=== PATIENT | female | born 1940 | race Caucasian/White ===

== ENCOUNTER → 2017-05-19 | Outpatient (CLI) | payer MEDICARE ==
--- NOTE | 2017-05-19 15:45 | PCVCIMAG ---
EXAM: BILATERAL CAROTID DUPLEX INDICATION: Carotid Occlusive Disease. FINDINGS: Doppler Measurements (centimeters per second): RIGHT: Peak CCA-48, Peak ECA-46, Diastolic ICA-48, Peak ICA-166, ICA/CCA Ratio-3.5. LEFT: Peak CCA-63, Peak ECA-54, Diastolic ICA-30, Peak ICA-90, ICA/CCA Ratio-1.4. RIGHT CAROTID: The carotid bulb has mild plaque. The proximal internal carotid artery shows 60% stenosis. The common carotid artery shows no significant stenosis. The external carotid artery shows no significant stenosis. LEFT CAROTID: The carotid bulb has minimal plaque. The proximal internal carotid artery shows no significant stenosis. The common carotid artery shows no significant stenosis. The external carotid artery shows no significant stenosis. Antegrade flow in both vertebral arteries. IMPRESSION: 60% stenosis of the right internal carotid artery with mild plaque. No significant stenosis of the left internal carotid artery with minimal plaque. Minimal change since May 2016 study. LOC:[id number]
== END | disposition home or self-care (01) ==
LOC: PCVCCLINIC 14:41
PROVIDERS: ATTEND Nuclear Medicine Nuclear Cardiology
DX: I65.21 Occlusion and stenosis of right carotid artery (principal); I77.9 Disorder of arteries and arterioles, unspecified; G89.4 Chronic pain syndrome; E78.00 Pure hypercholesterolemia, unspecified; M54.16 Radiculopathy, lumbar region; Z79.82 Long term (current) use of aspirin; Z79.899 Other long term (current) drug therapy
CPT/HCPCS: 93880; G0463

== ENCOUNTER → 2018-05-18 | Outpatient (CLI) | payer MEDICARE ==
--- NOTE | 2018-05-18 11:26 | PCVCIMAG ---
APPROVED REPORT Indications Stenosis Doppler Spectral Velocity Analysis PSV / EDVPSV / EDV ECA (R) 89 / 5 cm/sECA (L) 72 / 4 cm/s dICA (R) 152 / 46 cm/sdICA (L) 93 / 20 cm/s Cyndie (R) 82 / 26 cm/smICA (L) 82 / 29 cm/s pICA (R) 42 / 8 cm/spICA (L) 62 / 16 cm/s Bulb (R) 42 / 10 cm/sBulb (L) 53 / 12 cm/s dCCA (R) 78 / 14 cm/sdCCA (L) 69 / 13 cm/s mCCA (R) 73 / 16 cm/smCCA (L) 83 / 16 cm/s Vert (R) 58 / 16 cm/sVert (L) 53 / 10 cm/s ICA/CCA 1.95 ICA/CCA 1.12 Basic Measurements Blood Pressure: Pulses: Right Left RightLeft Brachial(Sitting) 120/72hqOz910/62mmHgTemporal Real Time B-Mode Imaging Vert. (R)AntegradeVert. (L)Antegrade Findings The right external carotid artery shows no significant stenosis. The right common carotid artery shows no significant stenosis. The right external carotid artery shows no significant stenosis. The right proximal internal carotid artery shows 50-60% stenosis. The left carotid bulb has minimal plaque. The left proximal internal carotid artery shows no significant stenosis. The left common carotid artery shows no significant stenosis. The left external carotid artery shows no significant stenosis. Conclusion 1. Right internal carotid artery stenosis (50-60%) 2. Left internal carotid artery plaquing without significant stenosis 3. Antegrade vertebral flow Similar to 2015
== END | disposition home or self-care (01) ==
LOC: PCVCIMAG 09:36
PROVIDERS: ATTEND Internal Medicine
DX: I65.23 Occlusion and stenosis of bilateral carotid arteries (principal); I77.9 Disorder of arteries and arterioles, unspecified
CPT/HCPCS: 93880